=== PATIENT | female | born 1975 | race Two or more races ===

== ENCOUNTER 2024-10-22 15:16 | Emergency (ER) | payer OTHER ==
[~2024-10-22] VITALS: Ht 167.6 cm; Wt 113.4 kg
[2024-10-22] MEDS ORDERED: LABETALOL HCL100 MG (15:54)
[2024-10-22] MEDS ORDERED: 0.9 % SODIUM CHLORIDE 1,000 ML IV STA (16:34)
[2024-10-22] MEDS ORDERED: MEPERIDINE HCL/PF 50 MG/ML VIAL IM ONE (16:45)
[2024-10-22 17:29] LABS: HEMATOCRIT 45.5 % (36.0-45.00); HEMOGLOBIN 15.5 g/dL (12.0-15.00); MEAN CELL VOLUME 83.4 fL (80.00-100.00); MEAN CORPUSCULAR HEMOGLOBIN 28.5 pg (27.00-32.0); MEAN CORPUSCULAR HGB CONC 34.1 g/dl (32.0-36.0); PLATELET COUNT 218 K/uL (150-450); RED BLOOD COUNT 5.45 M/uL (4.00-6.00); RED CELL DISTRIBUTION WIDTH 14.9 % (11.5-14.5)
[2024-10-22 17:43] LABS: CALCIUM 10.2 mg/dL (8.5-10.1); GFR 58.45; POTASSIUM 3.85 mEq/L (3.5-5.1)
[2024-10-22 18:31] LABS: URINE BILIRRUBIN Negative (NEGATIVE); URINE BLOOD Small; URINE COLOR Dark Yellow; URINE LEUKOCYTE Trace; URINE NITRATE Negative
[2024-10-22 18:54] LABS: URINE BACTERIA 64.8 uL (0.0-1933); URINE CAST 1.76 uL (0.0-1.40); URINE EPITHELIAL CELLS 16.4 uL (0.0-38.8); URINE WBC 4.5 uL (0.0-23.2)
[2024-10-22 19:19] LABS: URINE GLUCOSE 100 MG/DL (NEGATIVE); URINE KETONE 80 (NEGATIVE); URINE PROTEIN 100 (NEGATIVE)
[2024-10-22 21:31] LABS: URINE APPEARANCE CLEAR
== END 2024-10-22 20:28 | disposition left against medical advice (07) ==
LOC: ER 15:16
PROVIDERS: Emergency Medicine
DX: K52.89 Other specified noninfective gastroenteritis and colitis (principal); I10 Essential (primary) hypertension
CPT/HCPCS: 36415; 96365; 96366; 99282; J7030